=== PATIENT | female | born 1980 | race Caucasian/White ===

== ENCOUNTER 2017-09-23 14:48 | Emergency (ER) | payer BC, OTHER ==
[2017-09-23 16:01] LABS: ADD MAN DIFF? NO
[2017-09-23 16:03] LABS: WHITE BLOOD COUNT 8.5 10^3/ul (4.8-10.8)
[2017-09-23 16:03] LABS: BASOPHIL # 0.1 10^3/ul (0.0-0.1); BASOPHILS % 0.6 % (0.0-2.0); EOSINOPHILS # 0.1 10^3/ul (0.0-0.5); EOSINOPHILS % 0.9 % (0.0-7.0); HEMATOCRIT 39.2 % (37.0-47.0); HEMOGLOBIN 13.2 g/dl (12.0-16.0); LYMPHOCYTES # 1.8 10^3/ul (0.8-2.9); LYMPHOCYTES % 21.2 % (15.0-51.0); MEAN CORPUSCULAR HGB CONC 33.7 g/dl (32.0-37.0); MEAN CORPUSCULAR VOLUME 83.2 fl (82.0-101.0); MEAN PLATELET VOLUME 9.2 fl (7.4-10.4); MONOCYTE # 0.3 10^3/ul (0.3-0.9); NEUTROPHIL # 6.2 10^3/ul (1.6-7.5); NEUTROPHILS % 72.8 % (39.0-77.0); PLATELET COUNT 345 10^3/UL (140-415); RED BLOOD COUNT 4.71 10^6/ul (4.20-5.40); RED CELL DISTRIBUTION WIDTH 12.6 % (11.5-14.5)
[2017-09-23 16:25] LABS: ANION GAP 18 (8-16); BLOOD UREA NITROGEN 10 mg/dl (7-20); CALCIUM 9.9 mg/dl (8.4-10.2); CARBON DIOXIDE 26 mmol/L (21-31); CHLORIDE 102 mmol/L (97-110); CREATININE 0.73 mg/dl (0.44-1.00); GLUCOSE 135 mg/dl (70-220); POTASSIUM 3.5 mmol/L (3.5-5.1); SODIUM 142 mmol/L (135-144)
[2017-09-23] MEDS: SOD CHLORIDE 0.9% 1,000 ML IV (16:36)
[2017-09-23 16:38] LABS: TROPONIN-I < 0.012 ng/ml (0.00-0.12)
[2017-09-23 16:43] LABS: FREE THYROXINE INDEX (Calc) 3.71 ug/ml (0.65-3.89); T3 UPTAKE 29.7 % (23.5-40.5); T4 (THYROXINE) 12.5 ug/dl (5.5-11.0)
[2017-09-23 18:09] LABS: D-DIMER < 220.00 ng/ml (<460)
== END 2017-09-23 18:36 | disposition home or self-care (01) ==
LOC: E/R 14:48
DX: R00.2 Palpitations (principal); R07.9 Chest pain, unspecified
CPT/HCPCS: 36415; 71045; 80048; 84436; 84479; 84484; 85025; 85378; 93005; 99285-25

== ENCOUNTER 2018-11-13 19:20 | Emergency (ER) | payer BC ==
[2018-11-13 21:39] LABS: ADD UMIC YES; UR ASCORBIC ACID NEGATIVE (NEGATIVE); UR BILIRUBIN (Dip) NEGATIVE (NEGATIVE); UR BLOOD (Dip) 1+ mg/dL (NEGATIVE); UR CLARITY SLIGHTLY CLOUDY (CLEAR); UR COLOR YELLOW (YELLOW); UR GLUCOSE (Dip) NEGATIVE (NEGATIVE); UR KETONES (Dip) NEGATIVE (NEGATIVE); UR LEUKOCYTE ESTERASE (Dip) 1+ Leu/ul (NEGATIVE); UR NITRITE (Dip) NEGATIVE (NEGATIVE); UR RBC 16 /HPF (0-5); UR SPECIFIC GRAVITY (Dip) 1.016 (1.003-1.030); UR TOTAL PROTEIN (Dip) NEGATIVE (NEGATIVE); UR UROBILINOGEN (Dip) NEGATIVE (NEGATIVE); UR WBC 83 /HPF (0-5)
[2018-11-13] MEDS: PHENAZOPYRIDINE 100 MG TAB PO (23:30)
[2018-11-13] MEDS: NITROFURANTOIN MACROCRYS 100 MG CAP PO (23:33)
== END 2018-11-13 23:46 | disposition home or self-care (01) ==
LOC: FTE 19:20
DX: N30.01 Acute cystitis with hematuria (principal)
CPT/HCPCS: 81001; 81025; 87086; 99283

== ENCOUNTER 2018-11-15 10:55 | Emergency (ER) | payer BC | END 2018-11-15 12:30 | disposition home or self-care (01) | LOC: E/R 10:55 | DX: I10 Essential (primary) hypertension (principal) | CPT/HCPCS: 93005; 99283-25 ==